=== PATIENT | female | born 1965 | race Caucasian/White ===

== ENCOUNTER 2016-07-21 06:00 | Day surgery (SDC) | payer OTHER ==
[~2016-07-21] VITALS: Ht 170.2 cm; Wt 82.6 kg
[2016-07-21] MEDS ORDERED: FAMOTIDINE PF 20 MG/2 ML VIAL ONE ×2 (07:32→14:00)
[2016-07-21] MEDS ORDERED: LR 1,000 ML IV ONE (08:51)
[2016-07-21] MEDS ORDERED: KETOROLAC TROMETHAMINE 30 MG VIAL IM PRN (09:00)
[2016-07-21] MEDS ORDERED: NALBUPHINE HCL 10 MG/ML AMP IVP PRN (09:00)
[2016-07-21] MEDS ORDERED: NALOXONE HCL 0.4 MG/ML AMP (NARCAN) IVP PRN (09:00)
[2016-07-21] MEDS ORDERED: ePHEDrine sulfate 50 MG/ML VIAL IVP PRN (09:00)
[2016-07-21] MEDS ORDERED: ONDANSETRON HCL 4 MG/2 ML VIAL IVP PRN ×3 (09:00→11:00)
[2016-07-21] MEDS ORDERED: DIPHENHYDRAMINE INJ 50 MG/ML VIAL IVP PRN (09:00)
[2016-07-21] MEDS ORDERED: fentaNYL CITRATE/PF 100 MCG/2 ML AMP IVP PRN (09:00)
[2016-07-21] MEDS ORDERED: HYDROcodone/ACETAMIN 5-325 MG TAB (NORCO/ VICODIN) PO PRN (11:00)
[2016-07-21] MEDS ORDERED: OXYCODONE/ACETAMINOPHEN 5-325 TABLET PO PRN (11:00)
[2016-07-21] MEDS ORDERED: MORPHINE SULFATE 10 MG/ML VIAL IVP PRN (11:00)
[2016-07-21] MEDS ORDERED: fentaNYL CITRATE/PF 100 MCG/2 ML AMP ONE ×2 (11:25→14:00)
[2016-07-21 12:24] VITALS: BP_SYST 119
[2016-07-21] MEDS ORDERED: SIMETHICONE 80 MG TAB.CHEW PO SCH (13:00)
[2016-07-21] MEDS ORDERED: CEFAZOLIN 1 GM IVPB PREMIX 50 ML IV ONE ×2 (14:00)
[2016-07-21] MEDS ORDERED: SEVOFLURANE 15 MIN GAS INH ONE (14:00)
[2016-07-21] MEDS ORDERED: MIDAZOLAM HCL 5 MG/5 ML VIAL ONE (14:00)
[2016-07-21] MEDS ORDERED: NS 1000 ML BAG IV ONE (14:00)
[2016-07-21] MEDS ORDERED: DEXTROSE 50% JECT 50 ML DISP.SYRIN ONE (14:00)
[2016-07-21] MEDS ORDERED: MEPERIDINE HCL/PF 100 MG/ML AMP ONE (14:00)
[2016-07-21] MEDS ORDERED: BUPIVACAINE /EPINEPHRINE/PF 0.5% 30 ML VIAL INJ ONE (14:00)
[2016-07-21] MEDS ORDERED: LR 1,000 ML IV.SOLN IV ONE (14:00)
[2016-07-21] MEDS ORDERED: PROPOFOL 200MG/ 20ML VIAL (DIPRIVAN) IV ONE (14:00)
[2016-07-21] MEDS ORDERED: METOCLOPRAMIDE HCL 10 MG/2 ML VIAL ONE (14:00)
[2016-07-21] MEDS ORDERED: WATER FOR IRRIGATION,STERILE 1,000 ML IRRIG.SOLN IR ONE (14:00)
[2016-07-21] MEDS ORDERED: ROCURONIUM BROMIDE 10 MG/ML (ZEMURON) ONE (14:00)
[2016-07-21] MEDS ORDERED: DEXAMETHASONE SOD PHOSPHATE 4 MG/ML VIAL ONE (14:00)
[2016-07-21] MEDS ORDERED: OXYCODONE/ACETAMINOPHEN 5-325 TABLET ONE (14:38)
== END 2016-07-21 17:05 | disposition home or self-care (01) ==
LOC: SOR 06:00 → SMU 06:00 → UNDOADMIN 06:00 → EDSTATUS 07:30 → UNDODISIN 17:05 → SOR 17:05 → EDSTATUS 07-26 07:30
PROVIDERS: ATTEND Specialist
DX: N80.9 Endometriosis, unspecified (principal); N83.202 Unspecified ovarian cyst, left side; K21.9 Gastro-esophageal reflux disease without esophagitis; D25.9 Leiomyoma of uterus, unspecified; N73.6 Female pelvic peritoneal adhesions (postinfective); Z85.3 Personal history of malignant neoplasm of breast; Z90.12 Acquired absence of left breast and nipple
CPT/HCPCS: 52000; 58571; 88108; 88305; 88307; C1727; J0690; J1100; J2175; J2250; J2704; J2765; J3010; J3490 ×2; J7030; J7120; E0190